=== PATIENT | female | born 1965 | race Caucasian/White ===

== ENCOUNTER → 2018-04-04 | Outpatient (CLI) | payer OTHER ==
[~2018-04-04] VITALS: Ht 152.4 cm; Wt 64.0 kg
[~2018-04-04] MED LIST: ATOGEPANT PO; CIMETIDINE800 MG PO; CLARITIN10 MG PO; FLONASE 0.05%50 MCG NASAL; GYNODIOL0.5 MG PO; MEDROXYPROGEST2.5 MG PO; RIZATRIPTAN10 M1 PO; SINGULAIR 10 MG10 M1 PO; VITAMIN D2000 UNIT PO
--- NOTE | ~2018-04-04 | P ---
[facility] [place] [address] PROCEDURE REPORT Name: RYANTANYA A Room #: [facility] [place]#: [id number] Admission: 04/04/18 ������������������ Attend Phys: Serge Padilla MD Discharge: ������������������ Date of : 63 Report #: [id number] THIS REPORT FOR: //name// CC: Serge Guerrero DO BRIEF HISTORY: The patient is a 53-year-old woman for her first average risk screening colonoscopy. PREOPERATIVE DIAGNOSIS: Average risk screening colonoscopy. POSTOPERATIVE DIAGNOSIS: Normal average risk screening colonoscopy. MEDICATIONS: Deep sedation with propofol per anesthesia. SPECIMEN: None. ESTIMATED BLOOD LOSS: None. PROCEDURE: Colonoscopy to cecum and terminal ileum. FINDINGS: Prior to propofol sedation, procedure of colonoscopy discussed with the patient as well as potential risks and its complications. She indicates she understands and desires to proceed. DESCRIPTION OF PROCEDURE: The patient in left lateral decubitus position, digital examination was completed, which revealed no abnormalities. Subsequently, the Olympus video colonoscope was introduced in the rectum, advanced under direct vision to the cecum. Done with minimal difficulty. The cecum was identified by the ileocecal valve and the appendiceal orifice. I was able to visualize the distal segment of the terminal ileum, which was inspected and noted to be unremarkable. At that point, scope was slowly withdrawn and careful circumferential views obtained including retroflexing the scope in the ascending colon. Upon slow withdrawal of the scope, the prep was excellent. The mucosa was within normal limits, normal vascular pattern, normal light reflex. No inflammatory neoplastic lesions were seen. No abnormalities were seen upon withdrawal of the scope. She had normal colonic mucosa throughout. The scope was withdrawn in the rectum. Upon retroflexion, no abnormalities were seen. Scope was withdrawn. The patient tolerated the procedure well. CONDITION OF THE PATIENT UPON DISCHARGE: Following procedure, the patient drowsy, aroused, conversant and will be discharged home when fully ambulatory. INSTRUCTIONS TO THE PATIENT AND FAMILY AT THE TIME OF DISCHARGE: No neoplastic lesions were seen. This is a negative average risk screening colonoscopy. I would suggest followup colon exam in 10 years for average risk. She will [address] [address] PROCEDURE REPORT Name: RYANTANYA Room #: [facility] [place]#: [id number] Admission: 04/04/18 ������������������ Attend Phys: Serge Padilla MD Discharge: ������������������ Date of : 63 Report #: [id number] otherwise return to care of Dr. Guerrero and return to see me as needed. This is her first colonoscopy. Withdrawal time from the cecum was 9 minutes 29 seconds. ��������������������������������������������� ���������������������������������������� By: ��������������������������������������������� [id number] Serge Padilla MD /nt
== END | disposition home or self-care (01) ==
LOC: GI 08:55
DX: Z12.11 Encounter for screening for malignant neoplasm of colon (principal); K21.9 Gastro-esophageal reflux disease without esophagitis; G43.909 Migraine, unspecified, not intractable, without status migrainosus; Z96.642 Presence of left artificial hip joint; Z79.899 Other long term (current) drug therapy; Z98.890 Other specified postprocedural states; Z88.8 Allergy status to other drugs, medicaments and biological substances
CPT/HCPCS: 62110; 62900